=== PATIENT | male | born 1945 | race Caucasian/White ===

== ENCOUNTER 2017-06-29 09:31 | Emergency (ER) | payer MEDICARE, OTHER ==
[~2017-06-29] VITALS: Ht 188 cm; Wt 106.0 kg
[~2017-06-29 09:31] MED LIST: ADVAIR DISK1 INH; ALLEGRA180 MG OR; AMLODIPINE2.5 MG PO; ASPIRIN EC81 MG PO; AZELASTINE0.1 %; CENTRUM PO; CITRACAL + D OR; CITRACAL + D3 MAXIMU PO; COZAAR100 MG OR; CYANOCOBALAMIN OR; ECOTRIN LOW81 MG OR; ECOTRIN325 MG OR; EFFIENT10 MG PO; FEOSOL45 MG PO; FLUTICASONE50 MCG; FOLIC ACID OR; GABAPENTIN300 MG PO; GABAPENTIN400 MG OR; HYDROCHLOROT25 MG PO; ISOSORB MONO30 MG PO; LASIX40 MG OR; LIORESAL10 MG/TAB PO; LISINOPRIL10 MG OR; LISINOPRIL10 MG PO; METO25TAB PO; METOPROLOL25 M1 OR; NEURONTIN400 MG OR; NITROGLYCERIN0.4 MG SL; NITROLINGUAL SPRAY D MT; OMACOR1 GM OR; PERCOCET1 TA5 OR; PRILOSEC20 MG PO; PROVENTIL90 MCG IN; PYRIDOXINE OR; SINGULAIR10 MG PO; SKELAXIN800 MG OR; SOOTHE OU; TIZANIDINE4 MG PO; [UNRECOGNIZED DRUG - OTHER] OR
[2017-06-29 10:28] LABS: HEMATOCRIT 34.7 % (39.0-50.0); HEMOGLOBIN 10.9 g/dl (14.0-18.0); IMMATURE GRANULOCYTES 0.7 % (0.0-1.0); MEAN CELL VOLUME 82.8 fL CALC (80.0-100.0); MEAN CORPUSCULAR HGB CONC 31.4 g/L CALC (32.0-36.0); NEUT# 14.48 thou/uL (1.82-7.42); RED BLOOD COUNT 4.19 mill/uL (4.70-6.10); RED CELL DISTRI WIDTH 14.3 % (11.5-15.5)
[2017-06-29 10:38] LABS: INFLUENZA A NONE DETECTED (NONE DETECT); INFLUENZA B NONE DETECTED (NONE DETECT)
[2017-06-29 10:41] LABS: ALBUMIN 4.7 g/dL (3.2-5.0); ALKALINE PHOSPHATASE 64 u/l (38-126); ANION GAP 19 (6-22 (CALC)); BILIRUBIN, TOTAL 0.4 mg/dL (0.0-1.4); BUN 14 mg/dL (8-23); BUN/CREATININE RATIO 21 (12-20 (CALC)); CALCIUM 10.3 mg/dL (8.4-10.2); CARBON DIOXIDE 26 mmol/l (22-30); CHLORIDE 99 mmol/l (95-108); CREATININE 0.7 mg/dL (0.7-1.3); GFR > 60 ML/MIN (>=60 (CALC)); GFR FOR AFR.AMER. > 60 ML/MIN (>=60 (CALC)); GLUCOSE 132 mg/dL (82-115); POTASSIUM 4.6 mmol/l (3.5-5.1); SGOT/AST 32 u/l (19-48); SGPT/ALT 45 u/l (11-66); SODIUM 139 mmol/l (137-146); TOTAL PROTEIN 7.8 g/dL (6.3-8.2)
[2017-06-29] MEDS ORDERED: METO25TAB PO (10:49)
[2017-06-29] MEDS ORDERED: BRILINTA90 MG PO (10:50)
[2017-06-29 10:54] LABS: MYOGLOBIN 255 ng/mL (0 - 121)
[2017-06-29 11:22] LABS: URINE BILIRUBIN - DIPSTICK NEGATIVE (NEGATIVE); URINE BLOOD DIPSTICK NEGATIVE (NEGATIVE); URINE COLOR YELLOW; URINE GLUCOSE - DIPSTICK NEGATIVE (NEGATIVE); URINE KETONE NEGATIVE (NEGATIVE); URINE LEUK ESTERASE NEGATIVE (NEGATIVE); URINE NITRITE - DIPSTICK NEGATIVE (Negative); URINE PH 7.5 (4.5-8.0); URINE PROTEIN - DIPSTICK NEGATIVE (NEG-TRACE); URINE UROBILINOGEN - DIPSTICK 0.2 E.U./dL (0.2)
[2017-06-29 11:23] LABS: URINE CLARITY CLEAR
[2017-06-29] MEDS ORDERED: ALBUTEROL SUL0.083 % IN (12:04)
[2017-06-29] MEDS ORDERED: ZITHROMAX250 MG PO (12:04)
[2017-06-29] MEDS ORDERED: PREDNISONE50 MG PO (12:04)
[2017-06-29 12:07] VITALS: BP 139/89
== END 2017-06-29 12:18 | disposition home or self-care (01) ==
LOC: ED 09:31
PROVIDERS: Emergency Medicine
DX: J40 Bronchitis, not specified as acute or chronic (principal); R09.81 Nasal congestion; R05 Cough; R50.9 Fever, unspecified; R09.89 Other specified symptoms and signs involving the circulatory and respiratory systems; I10 Essential (primary) hypertension; Z95.5 Presence of coronary angioplasty implant and graft

== ENCOUNTER 2017-07-07 16:13 | Emergency (ER) | payer MEDICARE, OTHER ==
[~2017-07-07] VITALS: Ht 188 cm; Wt 85.0 kg
[~2017-07-07 16:13] MED LIST changes: +ALBUTEROL SUL0.083 % IN; +BRILINTA90 MG PO; +PREDNISONE50 MG PO; +ZITHROMAX250 MG PO
[2017-07-07 16:55] LABS: HEMATOCRIT 25.7 % (39.0-50.0); HEMOGLOBIN 7.9 g/dl (14.0-18.0); IMMATURE GRANULOCYTES 1.1 % (0.0-1.0); MEAN CELL VOLUME 81.8 fL CALC (80.0-100.0); MEAN CORPUSCULAR HGB 25.2 pG CALC (26.0-32.0); MEAN CORPUSCULAR HGB CONC 30.7 g/L CALC (32.0-36.0); NEUT# 17.18 thou/uL (1.82-7.42); RED BLOOD COUNT 3.14 mill/uL (4.70-6.10); RED CELL DISTRI WIDTH 14.8 % (11.5-15.5)
[2017-07-07 17:19] LABS: ALBUMIN 4.2 g/dL (3.2-5.0); ALKALINE PHOSPHATASE 54 u/l (38-126); ANION GAP 16 (6-22 (CALC)); BILIRUBIN, TOTAL 0.3 mg/dL (0.0-1.4); BUN 23 mg/dL (8-23); BUN/CREATININE RATIO 33 (12-20 (CALC)); CALCIUM 9.3 mg/dL (8.4-10.2); CARBON DIOXIDE 28 mmol/l (22-30); CHLORIDE 94 mmol/l (95-108); CREATININE 0.7 mg/dL (0.7-1.3); GFR > 60 ML/MIN (>=60 (CALC)); GFR FOR AFR.AMER. > 60 ML/MIN (>=60 (CALC)); GLUCOSE 113 mg/dL (82-115); POTASSIUM 4.7 mmol/l (3.5-5.1); SGOT/AST 35 u/l (19-48); SGPT/ALT 45 u/l (11-66); SODIUM 134 mmol/l (137-146); TOTAL PROTEIN 6.8 g/dL (6.3-8.2)
[2017-07-07] MEDS ORDERED: DUONEB IN (18:42)
[2017-07-07] MEDS ORDERED: PREDNISONE10 MG PO (18:42)
[2017-07-07] MEDS ORDERED: LEVAQUIN500 MG PO (18:42)
[2017-07-07 18:51] VITALS: BP 153/72
== END 2017-07-07 19:01 | disposition home or self-care (01) ==
LOC: ED 16:13
PROVIDERS: Emergency Medicine
DX: J44.1 Chronic obstructive pulmonary disease with (acute) exacerbation (principal); J40 Bronchitis, not specified as acute or chronic; R06.02 Shortness of breath; R05 Cough

== ENCOUNTER 2018-06-02 18:29 | Emergency (ER) | payer MEDICARE, OTHER ==
[~2018-06-02] VITALS: Ht 188 cm; Wt 109.1 kg
[~2018-06-02 18:29] MED LIST changes: +DUONEB IN; +LEVAQUIN500 MG PO; +PREDNISONE10 MG PO
[2018-06-02 19:38] LABS: HEMATOCRIT 42.2 % (39.0-50.0); HEMOGLOBIN 13.3 g/dl (14.0-18.0); IMMATURE GRANULOCYTES 0.4 % (0.0-5.0); MEAN CELL VOLUME 89.4 fL CALC (80.0-100.0); MEAN CORPUSCULAR HGB 28.2 pG CALC (26.0-32.0); MEAN CORPUSCULAR HGB CONC 31.5 g/L CALC (32.0-36.0); NEUT# 6.23 thou/uL (1.82-7.42); RED BLOOD COUNT 4.72 mill/uL (4.70-6.10); RED CELL DISTRI WIDTH 14.4 % (11.5-15.5)
[2018-06-02 19:40] LABS: URINE BILIRUBIN - DIPSTICK NEGATIVE (NEGATIVE); URINE BLOOD DIPSTICK MODERATE (NEGATIVE); URINE COLOR YELLOW; URINE GLUCOSE - DIPSTICK NEGATIVE (NEGATIVE); URINE KETONE NEGATIVE (NEGATIVE); URINE LEUK ESTERASE MODERATE (NEGATIVE); URINE NITRITE - DIPSTICK NEGATIVE (Negative); URINE PH 6.5 (4.5-8.0); URINE PROTEIN - DIPSTICK TRACE mg/dL (NEG-TRACE); URINE SPECIFIC GRAVITY 1.025; URINE UROBILINOGEN - DIPSTICK 0.2 E.U./dL (0.2)
[2018-06-02 19:47] LABS: URINE WBC 20-50 WBC/hpf (0-5)
[2018-06-02 19:48] LABS: URINE YEAST FEW hpf
[2018-06-02 19:51] LABS: ALBUMIN 4.3 g/dL (3.2-5.0); ALKALINE PHOSPHATASE 59 u/l (38-126); AMYLASE 64 u/l (30-110); ANION GAP 16 (6-22 (CALC)); BILIRUBIN, TOTAL 0.4 mg/dL (0.0-1.4); BUN 14 mg/dL (8-23); BUN/CREATININE RATIO 23 (12-20 (CALC)); CARBON DIOXIDE 29 mmol/l (22-30); CHLORIDE 96 mmol/l (95-108); CREATININE 0.6 mg/dL (0.7-1.3); GFR > 60 ML/MIN (>=60 (CALC)); GFR FOR AFR.AMER. > 60 ML/MIN (>=60 (CALC)); LIPASE 125 u/l (23-300); POTASSIUM 4.2 mmol/l (3.5-5.1); SGOT/AST 31 u/l (19-48); SODIUM 137 mmol/l (137-146); TOTAL PROTEIN 7.4 g/dL (6.3-8.2)
[2018-06-02 20:03] LABS: MYOGLOBIN 263 ng/mL (0 - 121)
[2018-06-02] MEDS ORDERED: CIPROFLOXACN500 MG PO (20:16)
[2018-06-02] MEDS ORDERED: PYRIDIUM200 MG PO (20:16)
[2018-06-02 21:17] VITALS: BP 154/71
== END 2018-06-02 21:15 | disposition home or self-care (01) ==
LOC: ED 18:29
PROVIDERS: Emergency Medicine
DX: N39.0 Urinary tract infection, site not specified (principal); I10 Essential (primary) hypertension; J44.9 Chronic obstructive pulmonary disease, unspecified; I25.10 Atherosclerotic heart disease of native coronary artery without angina pectoris; I25.2 Old myocardial infarction; G82.20 Paraplegia, unspecified; Z86.14 Personal history of Methicillin resistant Staphylococcus aureus infection; Z95.5 Presence of coronary angioplasty implant and graft; Z99.81 Dependence on supplemental oxygen; R06.02 Shortness of breath
CPT/HCPCS: J1956

== ENCOUNTER → 2018-08-17 | Outpatient (REF) | payer MEDICARE, OTHER ==
[~2018-08-17] MED LIST changes: +CIPROFLOXACN500 MG PO; +PYRIDIUM200 MG PO
[2018-08-17 13:13] LABS: IMMATURE GRANULOCYTES 0.5 % (0.0-5.0); MEAN CELL VOLUME 88.6 fL CALC (80.0-100.0); MEAN CORPUSCULAR HGB 28.1 pG CALC (26.0-32.0); MEAN CORPUSCULAR HGB CONC 31.7 g/L CALC (32.0-36.0); NEUT# 5.93 thou/uL (1.82-7.42); RED BLOOD COUNT 5.59 mill/uL (4.70-6.10); RED CELL DISTRI WIDTH 14.3 % (11.5-15.5)
[2018-08-17 13:21] LABS: ALBUMIN 4.4 g/dL (3.2-5.0); ALKALINE PHOSPHATASE 55 u/l (38-126); ANION GAP 17 (6-22 (CALC)); BILIRUBIN, TOTAL 0.5 mg/dL (0.0-1.4); BUN 12 mg/dL (8-23); BUN/CREATININE RATIO 23 (12-20 (CALC)); CARBON DIOXIDE 29 mmol/l (22-30); CHLORIDE 98 mmol/l (95-108); CREATININE 0.5 mg/dL (0.7-1.3); GFR > 60 ML/MIN (>=60 (CALC)); GFR FOR AFR.AMER. > 60 ML/MIN (>=60 (CALC)); HEMATOCRIT 49.5 % (39.0-50.0); HEMOGLOBIN 15.7 g/dl (14.0-18.0); POTASSIUM 4.3 mmol/l (3.5-5.1); SGOT/AST 31 u/l (19-48); SODIUM 139 mmol/l (137-146); TOTAL PROTEIN 6.9 g/dL (6.3-8.2)
== END | disposition home or self-care (01) ==
LOC: LAB 10:34
PROVIDERS: ATTEND Internal Medicine
DX: E21.0 Primary hyperparathyroidism (principal)

== ENCOUNTER → 2018-09-02 | Outpatient (REF) | payer MEDICARE, OTHER | END | disposition home or self-care (01) | LOC: CT 10:51 | PROVIDERS: ATTEND Nurse Practitioner | DX: Z77.090 Contact with and (suspected) exposure to asbestos (principal) ==

== ENCOUNTER 2020-04-14 | Observation (INO) | payer MEDICARE, OTHER ==
[~2020-04-14] VITALS: Ht 188 cm; Wt 102.1 kg
[2020-04-14] VITALS: BP 168/95
[2020-04-14 10:58] VITALS: BP 102/65
--- NOTE | 2020-04-14 10:58 | NUR ---
PT ARRIVED TO [facility] VIA OWN WHEELCHAIR ACCOMPANIED BY . A&O X3. NO DISTRESS NOTED. PT SLIGHTLY FLUSHED IN APPEARANCE. O2 VIA NC @3L PLACED, PT REPORTS TO BE HOME O2 DEPENDENT. PITTING EDEMA NOTED TO BLE AND BILATERAL FEET (+4). PT REPORTS NOT BEING ABLE TO URINATE SINCE YESTERDAY WITH SOME HEMATURIA THAT WAS NOTED YESTERDAY WITH HIS SMALL AMOUNT OF URINE OUTPUT. BLADDER SCANNED PT, URINE RISIDUAL 150. ENCOURAGED PT TO URINATE. URINAL AT BEDSIDE. CIRCULAR CLOSED REDDENED WOUND NOTED IN LT INTERGLUTEAL CLEFT, SEE CHART FOR PHOTO. 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 PT REPORTED TO BE HYPOTENSIVE AT HIS DOCTORS APPOINTMENT, PT SLIGHTLY HYPOTENSIVE ON ARRIVAL. BUSINESS APPLICATIONS MANAGER PLACED. NO OTHER NEEDS AT THIS TIME. MED LIST OBTAINED AND UPDATED ON PTS PROFILE. ASSESSMENT COMPLETED. DISCUSSED POC. CALL LIGHT IN REACH. CONTINUE TO MONITOR.
[2020-04-14 14:05] VITALS: BP 140/46
[2020-04-14 14:19] LABS: HEMATOCRIT 48.4 % (39.0-50.0); HEMOGLOBIN 14.8 g/dl (14.0-18.0); IMMATURE GRANULOCYTES 0.8 % (0.0-5.0); MEAN CELL VOLUME 93.1 fL CALC (80.0-100.0); MEAN CORPUSCULAR HGB 28.5 pG CALC (26.0-32.0); MEAN CORPUSCULAR HGB CONC 30.6 g/dL CAL (32.0-36.0); NEUT# 27.37 thou/uL (1.82-7.42); RED BLOOD COUNT 5.2 mill/uL (4.70-6.10); RED CELL DISTRI WIDTH 14.4 % (11.5-15.5)
[2020-04-14 14:36] LABS: ALKALINE PHOSPHATASE 71 u/l (38-126); ANION GAP 16 (6-22 (CALC)); BILIRUBIN, TOTAL 1.1 mg/dL (0.0-1.4); BUN 26 mg/dL (8-23); BUN/CREATININE RATIO 31 (12-20 (CALC)); CARBON DIOXIDE 26 mmol/l (22-30); CHLORIDE 97 mmol/l (95-108); CREATININE 0.8 mg/dL (0.7-1.3); GFR > 60 ML/MIN (>=60 (CALC)); GFR FOR AFR.AMER. > 60 ML/MIN (>=60 (CALC)); SGOT/AST 36 u/l (19-48); SODIUM 134 mmol/l (137-146); TOTAL PROTEIN 6.7 g/dL (6.3-8.2)
[2020-04-14 14:37] LABS: POTASSIUM 5.3 mmol/l (3.5-5.1)
--- NOTE | 2020-04-14 15:10 | NUR ---
URINE SAMPLE OBTAINED AND TAKEN TO LAB
[2020-04-14 15:12] LABS: URINE BILIRUBIN - DIPSTICK NEGATIVE (NEGATIVE); URINE BLOOD DIPSTICK MODERATE (NEGATIVE); URINE COLOR YELLOW; URINE GLUCOSE - DIPSTICK NEGATIVE (NEGATIVE); URINE KETONE 15 mg/dL (NEGATIVE); URINE LEUK ESTERASE MODERATE (Negative); URINE NITRITE - DIPSTICK POSITIVE (Negative); URINE PROTEIN - DIPSTICK 30 mg/dL (NEG-TRACE); URINE SPECIFIC GRAVITY 1.015; URINE UROBILINOGEN - DIPSTICK 0.2 E.U./dL (0.2)
[2020-04-14 15:13] LABS: URINE BACTERIA MANY hpf; URINE CLARITY CLOUDY; URINE EPITHELIAL CELLS FEW EPI/hpf (0-FEW); URINE WBC 20-50 WBC/hpf (0-5)
[2020-04-14 15:25] VITALS: BP 154/96
[2020-04-14] MEDS ORDERED: POTASSIUM CHLO20 ME2 PO (16:07)
[2020-04-14] MEDS ORDERED: LASIX 40 MG TAB40 MG PO (16:07)
[2020-04-14] MEDS ORDERED: ASPIRIN 81 LOW81 MG PO (16:09)
[2020-04-14] MEDS ORDERED: ARTIFI TEAR1 OU (16:16)
--- NOTE | 2020-04-14 17:17 | NUR ---
PT SITTING IN BED WITH AT BEDSIDE. NO DISTRESS OR NEEDS AT THIS TIME. CALL LIGHT IN REACH. CONTINUE TO MONITOR.
--- NOTE | 2020-04-14 19:25 | NUR ---
PT IS AWAKE IN HIGH FOWLERS IN BED. ASSISTED PT W/ADDITIONAL PILLOWS BEHIND HIS BACK AND POSITION LEGS REQUESTED. ASSISTED PT DRINK PO FLUIDS, HE REPORTS HE IS UNABLE TO USE CALL LIGHT OR DRINK HIMSELF. ALTHOUGH I DID NOTE THAT PT PRESSED CALL LIGHT JUST PRIOR TO MY ENTERING ROOM, HE REPLIED "I CAN GET IT SOMETIMES." I MADE SURE CALL LIGHT WAS PLACED TO OPTIMIZE PT'S ABILITY TO USE IT. PT IS GETTING COUGHING AND SPITTING SPUTUM INTO A CUP WHILE I AM IN THE ROOM AND C/O PRESSURE IN CHEST/SOB WHEN HOB IS DOWN TO POSITION.
[2020-04-14 20:00] VITALS: BP 137/75
--- NOTE | 2020-04-14 21:24 | NUR ---
PT IS ASKING FOR HIS HOME MEDICATIONS, STATES HE HAS NOT TAKEN ANY MEDICATIONS TODAY. I REVIEWED MEDS WITH HIM AND NOTIFIED PHYSICIAN. ORDERS RECEIVED FOR LISINIPRIL AT THIS TIME. PHYSICIAN NOTIFIED OF PT BP AND HEART RATE, NO OTHER ORDERS RECEIVED AT THIS TIME.
[2020-04-14 22:03] VITALS: BP 112/59
--- NOTE | 2020-04-14 22:05 | NUR ---
BP ASSESSED AT 112/59, HR 109. PT REFUSED HIS LISINIPRIL AT THIS TIME BECAUSE HE IS NOW WORRIED THAT HIS BP WILL DROP LOWER. PT HAD PREVIOUSLY BEEN VERY ANXIOUS ABOUT HIS BP BEING ELEVATED. HE ASKED IF WE CAN MONITOR IT AT MIDNIGHT AND TAKE HIS MEDICATION THEN IF HE NEEDS IT. MEDICATION HELD AT THIS TIME.
--- NOTE | 2020-04-14 23:42 | NUR ---
V/S ASSESSED BY NEW CAR MAKE READY MECHANIC. MEDICATED FOR ELEVATED BP, PT ASKED FOR LISINIPRIL ORDERED/PROVIDED.
[2020-04-15 01:05] VITALS: BP 132/84
[2020-04-15 04:15] VITALS: BP 115/63
--- NOTE | 2020-04-15 04:20 | NUR ---
PT MEDICATED FOR LEG PAIN. DENIES ANY OTHER NEEDS AT THIS TIME.
[2020-04-15 05:37] LABS: ALBUMIN 3.3 g/dL (3.2-5.0); ALKALINE PHOSPHATASE 60 u/l (38-126); ANION GAP 15 (6-22 (CALC)); BILIRUBIN, TOTAL 0.9 mg/dL (0.0-1.4); BUN 17 mg/dL (8-23); BUN/CREATININE RATIO 31 (12-20 (CALC)); CARBON DIOXIDE 24 mmol/l (22-30); CHLORIDE 98 mmol/l (95-108); CREATININE 0.5 mg/dL (0.7-1.3); GFR > 60 ML/MIN (>=60 (CALC)); GFR FOR AFR.AMER. > 60 ML/MIN (>=60 (CALC)); POTASSIUM 4.7 mmol/l (3.5-5.1); SGOT/AST 30 u/l (19-48); SODIUM 132 mmol/l (137-146); TOTAL PROTEIN 5.7 g/dL (6.3-8.2)
[2020-04-15 07:34] VITALS: BP 121/44
--- NOTE | 2020-04-15 07:34 | NUR ---
PT LAYING IN BED. A&O X3. NO DISTRESS NOTED. PT REPORTS TO BE FEELING BETTER TODAY COMPARED TO YESTERDAY. C/O OF SLIGHT LEG "BURNING". EDEMA TO BILATERAL LEGS AND FEET EDEMA IMPROVED COMPARED TO YESTERDAY. PT WISHES TO GO HOME THIS MORNING. ASSESSMENT COMPLETED. DISCUSSED POC. CALL LIGHT IN REACH. CONTINUE TO MONITOR.
[2020-04-15 09:21] VITALS: BP 121/44
[2020-04-15] MEDS ORDERED: CIPROFLOXACN500 MG PO (09:37)
[2020-04-15 10:15] LABS: HEMATOCRIT 46.5 % (39.0-50.0); HEMOGLOBIN 14.5 g/dl (14.0-18.0); IMMATURE GRANULOCYTES 0.7 % (0.0-5.0); MEAN CELL VOLUME 91.5 fL CALC (80.0-100.0); MEAN CORPUSCULAR HGB 28.5 pG CALC (26.0-32.0); MEAN CORPUSCULAR HGB CONC 31.2 g/dL CAL (32.0-36.0); NEUT# 21.9 thou/uL (1.82-7.42); RED BLOOD COUNT 5.08 mill/uL (4.70-6.10); RED CELL DISTRI WIDTH 13.9 % (11.5-15.5)
--- NOTE | 2020-04-15 14:28 | NUR ---
Discharge instructions given. Patient verbalizes understanding of same. Discharged in stable condition via wheelchair to home accompanied by staff. Home o2 applied, pt encouraged to monitor urine output and keep a record of it. Pt encouraged to return if symptoms worsen. All belongings sent with pt.
== END 2020-04-15 14:10 | disposition home or self-care (01) ==
LOC: MS2 10:46
PROVIDERS: ADMIT Internal Medicine; ATTEND Internal Medicine
DX: N39.0 Urinary tract infection, site not specified (principal); R31.9 Hematuria, unspecified; I25.10 Atherosclerotic heart disease of native coronary artery without angina pectoris; I10 Essential (primary) hypertension; J44.9 Chronic obstructive pulmonary disease, unspecified; G12.21 Amyotrophic lateral sclerosis; J96.11 Chronic respiratory failure with hypoxia; I25.2 Old myocardial infarction; Z95.5 Presence of coronary angioplasty implant and graft; Z23 Encounter for immunization
CPT/HCPCS: G0378; G0379